=== PATIENT | female | born 1985 | race Caucasian/White ===

== ENCOUNTER 2019-02-14 17:33 | Emergency (ER) | payer BC, MEDICAID, OTHER ==
[~2019-02-14] VITALS: Ht 160 cm; Wt 106.8 kg
[~2019-02-14 17:33] MED LIST: ACYC-202 PO; DIAZ5TAB PO; DOCU-28 PO; ETON68IM3 SQ; HYDR-4383 PO; HYDR25SU32 RC; IBUPROFEN 600 MG PO; LANS30CA56 PO; ONDA4TAB6 PO; SUMA100T PO; ZOF4T PO
--- NOTE | 2019-02-14 18:58 | NUR ---
PT HAS HAD UTI SYMPTOMS FOR PAST MONTH
[2019-02-14 19:06] LABS: CLARITY,URINE SLIGHTLY CLOUDY (Clear); COLOR,URINE YELLOW (Yellow); GLUCOSE, URINE NEGATIVE (Neg); KETONES,URINE NEGATIVE (Neg); LEUKOCYTE ESTERASE ,URINE MODERATE (Neg); NITRITES, URINE NEGATIVE (Neg); OCCULT BLOOD,URINE SMALL (Neg); PH,URINE 5.5 (4.8-8.0); PROTEIN,URINE NEGATIVE (Neg); UROBILINOGEN,URINE 0.2 E.U/dL (0.2-1.0)
[2019-02-14 19:09] LABS: UA COLLECTION TYPE CLN CATCH MIDSTREAM
[2019-02-14] MEDS ORDERED: CEPH-572 PO (19:18)
[2019-02-14 19:19] LABS: BACTERIA,URINE 3+ /HPF (Neg); SQUAMOUS EPITHELIAL CELL,UR MANY /LPF (FEW); WBC,URINE 30-50 /HPF (0-4)
--- NOTE | 2019-02-14 19:22 | NUR ---
LAB CALLED. URINE SPECIMEN CONTAMINATED. CAN NOT RUN
[2019-02-14 19:28] VITALS: BP 145/95
== END 2019-02-14 19:30 | disposition home or self-care (01) ==
LOC: ER 17:33
DX: N39.0 Urinary tract infection, site not specified (principal); G43.909 Migraine, unspecified, not intractable, without status migrainosus; K21.9 Gastro-esophageal reflux disease without esophagitis; Z87.442 Personal history of urinary calculi; Z90.49 Acquired absence of other specified parts of digestive tract; Z98.890 Other specified postprocedural states; Z79.899 Other long term (current) drug therapy
CPT/HCPCS: 81001; 99283